=== PATIENT | male | born 1955 | race Caucasian/White ===

== ENCOUNTER 2017-02-26 07:14 | Day surgery (SDC) | payer MEDICARE, BC ==
[~2017-02-26 07:14] MED LIST: Metoclopramide 10 MG/2 ML SDV IV PRN; Sodium Chloride 0.9% 1,000 ML IV SCH; Sodium Chloride 0.9% 10 ML Syringe FLUSH PRN
[2017-02-26] MEDS ORDERED: Propofol 200 MG/20 ML SDV ONE (09:30)
[2017-02-26 11:15] VITALS: BP 141/63
--- NOTE | 2017-02-26 19:10 | OR ---
DATE OF OPERATION: 02/26/2017 PREOPERATIVE DIAGNOSIS: Surveillance colonoscopy, prior history of polyps. POSTOPERATIVE DIAGNOSES: 1. Diverticulosis of the sigmoid. 2. 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 3. Grade 1 internal hemorrhoids. OPERATION: Surveillance colonoscopy, prior history of polyps. COMPLICATIONS: None. DRAINS: None. SPECIMENS: None. ESTIMATED BLOOD LOSS: Zero. ANESTHESIA: General propofol anesthesia. INDICATIONS: Mr. Cervantes is a 61-year-old gentleman who has been having colonoscopies every 5 years for a polyp identified in the past. He has no family history of colon cancer. The above-mentioned procedure was explained. The risks, benefits, and complications were explained. The patient understood and agreed, and was brought to the operating room. DESCRIPTION OF PROCEDURE: The patient was brought to the operating room and placed in a left lateral decubitus position. Satisfactory general propofol anesthesia was administered. We began by performing a rectal examination, which was within normal limits. I then placed the endoscope by finger introduction into the rectum and subsequently advanced this to the level of the cecum. The cecum was identified by the appendiceal orifice, the cecal strap, and the ileocecal valve. Next, a careful evaluation of the colon was made on withdrawal. There was an interesting finding of significantly enlarged veins identified on the mucosal surface just proximal and distal, and including the splenic flexure. No other veins were identified anywhere else in the colon of this nature. These were very large and tortuous veins. The remainder of the left colon appeared satisfactory. There was diverticulosis of the sigmoid colon. Retroflexion did reveal grade 1 internal hemorrhoids. Otherwise, no other abnormalities. There were no polyps, no telangiectasias or neoplastic growths. The colon was then decompressed. The endoscope was withdrawn. The patient tolerated the procedure well. There were no complications. Instrument count was correct. SHELBIE/CHELSI /[id number]
== END 2017-02-26 11:20 | disposition home or self-care (01) ==
LOC: LB.SDS 07:14
PROVIDERS: ATTEND Surgery
DX: Z12.11 Encounter for screening for malignant neoplasm of colon (principal); K57.30 Diverticulosis of large intestine without perforation or abscess without bleeding; K64.8 Other hemorrhoids
CPT/HCPCS: 82962; G0105; J2704; J7040

== ENCOUNTER 2019-05-10 09:38 | Emergency (ER) | payer MEDICARE, BC ==
[2019-05-10 10:15] VITALS: BP 148/68
[2019-05-10] MEDS ORDERED: Ondansetron 4 MG Tab.DIS ONE (10:20)
--- NOTE | 2019-05-10 10:53 | EDM.PDOC ---
ED HPI GENERAL MEDICAL PROBLEM - General Chief Complaint: General Stated Complaint: upset stomach, unable to eat Time Seen by Provider: 05/10/19 10:00 Source of Information: Reports: Patient History Limitations: Reports: No Limitations - History of Present Illness INITIAL COMMENTS - FREE TEXT/NARRATIVE: According to patient he claims he has been having loose stools on and off for past 1 wk. Stools are semiformed and frequent. Mild abdominal distension and cramping with stools. No blood or mucus in the stools. he has not had stools for past 2 days. He claims he has felt nausea on and off, and has not been eating well. No fever or chills. He claims he vomited small amount of clear fluid last evening, but had oat meal today morning and tolerated it well.. Drinking lot of Gatorade. He has been driving his bike and has driven about 1500 miles around the country and back yesterday. Onset Date: 05/03/19 Duration: Week(s): (1 wk ago) Location: Reports: Abdomen Quality: Reports: Ache Severity: Mild Associated Symptoms: Reports: Nausea/Vomiting. Denies: Confusion, Chest Pain, Cough, Diaphoresis, Fever/Chills, Headaches, Rash, Seizure, Shortness of Breath , Syncope, Weakness abd pain and back pain Pain Score (Numeric/FACES): 6 - Related Data Allergies Allergy/AdvReac Type Severity Reaction Status Date / Time No Known Allergies Allergy Verified 05/10/19 10:15 Home Meds: Home Meds Aspirin [Adult Low Dose Aspirin EC] 81 mg PO DAILY 02/21/16 [History] Insulin Aspart [Novolog] 0 unit SQ TID 02/21/16 [History] Insulin Detemir [Levemir] 25 unit SUBCUT DAILY 02/21/16 [History] Lisinopril 10 mg PO DAILY 02/21/16 [History] Metoprolol Succinate [Toprol XL] 25 mg PO DAILY 02/21/16 [History] Past Medical History Cardiovascular History: Reports: Afib, Hypertension Endocrine/Metabolic History: Reports: Diabetes, Type I Immunologic History: Reports: Other (See Below) Other Immunologic History: patient has had spleen removal Social & Family History - Caffeine Use Caffeine Use: Reports: Coffee ED ROS GENERAL - Review of Systems Review Of Systems: See Below Constitutional: Denies: Fever, Chills HEENT: Denies: Ear Pain, Rhinitis, Throat Pain Respiratory: Denies: Shortness of Breath, Cough, Sputum Cardiovascular: Denies: Chest Pain, Lightheadedness, Syncope GI/Abdominal: Reports: Abdominal Pain, Diarrhea, Nausea, Vomiting. Denies: Constipation : Denies: Dysuria, Frequency Musculoskeletal: Denies: Joint Pain, Joint Swelling Skin: Denies: Bruising, Pruritis, Rash ED EXAM, GENERAL - Physical Exam Exam: See Below Exam Limited By: No Limitations General Appearance: Alert, WD/WN, No Apparent Distress, Other (Hydration appropriate) Eye Exam: Bilateral Eye: EOMI, PERRL Ears: Normal External Exam, Normal Canal, Hearing Grossly Normal, Normal TMs Ear Exam: Bilateral Ear: Auricle Normal, Canal Normal, TM normal Nose: Normal Inspection, Normal Mucosa, No Blood Throat/Mouth: Normal Inspection, Normal Lips, Normal Teeth, Normal Gums, Normal Oropharynx, Normal Voice, No Airway Compromise Head: Atraumatic, Normocephalic Neck: Normal Inspection, Supple, Non-Tender, Full Range of Motion Respiratory/Chest: No Respiratory Distress, Lungs Clear, Normal Breath Sounds, No Accessory Muscle Use, Chest Non-Tender Cardiovascular: Normal Peripheral Pulses, Regular Rate, Rhythm, No Edema, No Gallop, No JVD, No Murmur, No Rub GI/Abdominal: Normal Bowel Sounds, Soft, Non-Tender, No Organomegaly, No Distention, No Abnormal Bruit, No Mass Course - Vital Signs Text/Narrative:: Pt has had 1 wk history of loose stools, has not had any more stools in past 48 hrs. Also has mild nausea. But he has been driving 1500milks and reached home [place]. HE probably is tired form the journey. His CBC show white count of 16K, but his neutrophils are normal. This might be reactive elevation of white count form the stress. His BMP is normal.His LFT is normal. Pt reassured that he has viral gastroenteritis which is clearing up and is not dehydrated. Advised rest and good hydration. Powerade and Gatorade for electrolyte replenishment. Apples and bananas. Avoid meat and dairy products until he fells better. He did receive zofran ODT every 8 hrs as needed for nausea. followup in clinic if symptoms worsen. Last Recorded V/S: Last Vital Signs Temp 98.9 F 05/10/19 10:05 Pulse 86 05/10/19 10:05 Resp 16 05/10/19 10:05 BP 148/68 H 05/10/19 10:05 Pulse Ox 96 05/10/19 10:05 - Orders/Labs/Meds Orders: Active Orders 24 hr Category Date Time Status CBC WITH AUTO DIFF [HEME] Stat Lab 05/10/19 10:17 Ordered COMPREHENSIVE METABOLIC PN,CMP [CHEM] Stat Lab 05/10/19 10:17 Ordered Departure - Departure Time of Disposition: 11:00 Disposition: Home, Self-Care 01 Condition: Fair Clinical Impression: Viral gastroenteritis - Discharge Information *PRESCRIPTION DRUG MONITORING PROGRAM REVIEWED*: Not Applicable *COPY OF PRESCRIPTION DRUG MONITORING REPORT IN PATIENT MIKAEL: Not Applicable Referrals: PCP,None [Primary Care Provider] - - Problem List & Annotations (1) Viral gastroenteritis SNOMED Code(s): 980310963 Code(s): A08.4 - VIRAL INTESTINAL INFECTION, UNSPECIFIED Status: Acute Current Visit: Yes - Problem List Review Problem List Initiated/Reviewed/Updated: Yes - My Orders Last 24 Hours: My Active Orders 05/10/19 10:17 CBC WITH AUTO DIFF [HEME] Stat COMPREHENSIVE METABOLIC PN,CMP [CHEM] Stat - Assessment/Plan Last 24 Hours: My Active Orders 05/10/19 10:17 CBC WITH AUTO DIFF [HEME] Stat COMPREHENSIVE METABOLIC PN,CMP [CHEM] Stat Assessment:: Viral Gastroenteritis Plan: Pt has had 1 wk history of loose stools, has not had any more stools in past 48 hrs. Also has mild nausea. But he has been driving 1500milks and reached home Saturday. HE probably is tired form the journey. His CBC show white count of 16K, but his neutrophils are normal. This might be reactive elevation of white count form the stress. His BMP is normal.His LFT is normal. Pt reassured that he has viral gastroenteritis which is clearing up and is not dehydrated. Advised rest and good hydration. Powerade and Gatorade for electrolyte replenishment. Apples and bananas. Avoid meat and dairy products until he fells better. He did receive zofran ODT every 8 hrs as needed for nausea. followup in clinic if symptoms worsen.
== END 2019-05-10 11:05 | disposition home or self-care (01) ==
LOC: LB.ED 09:38
DX: A08.4 Viral intestinal infection, unspecified (principal); I48.91 Unspecified atrial fibrillation; I10 Essential (primary) hypertension; E10.9 Type 1 diabetes mellitus without complications; Z79.82 Long term (current) use of aspirin; Z79.899 Other long term (current) drug therapy; Z79.4 Long term (current) use of insulin
CPT/HCPCS: 36415; 80053; 85025; 99284; A9270

== ENCOUNTER 2019-05-13 09:28 | Inpatient (IN) | payer MEDICARE, BC ==
--- NOTE | 2019-05-13 12:19 | CT ---
DATE OF SERVICE: 05/13/2019 CLINICAL DATA: Abdominal pain, nausea with vomiting Unenhanced abdomen and pelvic CT: Multislice acquisition through the abdomen and pelvis without IV or oral contrast was performed. There are linear densities in both lung bases consistent with linear atelectasis or fibrosis. The lung bases are otherwise clear. The unenhanced liver appears normal. No focal hepatic lesions. The gallbladder is not adequately seen. The patient status post splenectomy. There is peripancreatic fat stranding adjacent to the head and uncinate process of the pancreas. Pancreatitis should be considered. No evidence of abscess or phlegmon. No evidence of pancreatic mass. No pancreatic duct dilatation. The right and left adrenals appear normal. The right and left kidneys appear normal. No nephrocalcinosis or nephrolithiasis. No hydronephrosis or hydroureter. The bladder is partially fluid-filled. It appears normal. The prostate is enlarged. No evidence of appendicitis. No free air. No free fluid. No dilated loops of bowel. No adenopathy. No aortic aneurysm. Impressions: Peripancreatic fat stranding adjacent to the head and uncinate process of pancreas consistent with pancreatitis. No evidence of pancreatic abscess or phlegmon. MTDD
[2019-05-13] MEDS ORDERED: Sodium Chloride 0.9% 1,000 ML IV SCH ×3 (12:45→16:30)
[2019-05-13] MEDS ORDERED: Sodium Chloride 0.9% 250 ML IV SCH (13:00)
[2019-05-13] MEDS ORDERED: HYDROmorphone 2 MG/ML SDV ONE ×3 (14:06→21:57)
[2019-05-13] MEDS: HYDROmorphone 2 MG/ML Syringe IVPUSH PRN ×3 (14:10→21:55)
[2019-05-13] MEDS ORDERED: Dextrose 5%-0.9% NaCl 1,000 ML IV SCH (17:30)
[2019-05-13] MEDS: Dextrose 5%-0.45% NaCl 1,000 ML IV SCH (18:45)
[2019-05-13] MEDS ORDERED: Insulin Aspart 100 Units/ML 3 ML Pen SUBCUT ONE (21:16)
[2019-05-14] MEDS: Dextrose 5%-0.45% NaCl 1,000 ML IV SCH (01:26)
[2019-05-14] MEDS: HYDROmorphone 2 MG/ML Syringe IVPUSH PRN ×6 (02:48→22:04)
[2019-05-14] MEDS: Insulin Aspart 100 Units/ML 3 ML Pen SUBCUT ONE ×2 (05:49→09:08)
[2019-05-14] MEDS ORDERED: HYDROmorphone 2 MG/ML SDV ONE ×5 (07:21→21:57)
[2019-05-14] MEDS ORDERED: Polyethylene Glycol 3350 Powder 17 GM Packet PO ONE (08:39)
[2019-05-14] MEDS ORDERED: Lisinopril 10 MG Tab PO SCH (08:45)
--- NOTE | 2019-05-14 08:46 | PCM.PN ---
- General Info Date of Service: 05/14/19 Admission Dx/Problem (Free Text): pancreatitis Subjective Update: Pt is feeling better. He is taking clear liquids and no N/V anymore. He is voiding well. No BM and not passing gas. Functional Status: Reports: Pain Controlled, Tolerating Diet, Urinating - Review of Systems General: Reports: Weakness. Denies: Fever HEENT: Denies: Headaches, Sinus Congestion, Visual Changes Pulmonary: Denies: Shortness of Breath, Cough Cardiovascular: Denies: Chest Pain, Palpitations Gastrointestinal: Reports: Other (abdominal pain is improved, comes and goes). Denies: Flatus, Nausea, Vomiting Genitourinary: Reports: No Symptoms Musculoskeletal: Reports: No Symptoms Skin: Reports: No Symptoms Neurological: Reports: No Symptoms Psychiatric: Reports: No Symptoms - Patient Data Vitals - Most Recent: Last Vital Signs Temp 99.1 F 05/14/19 03:31 Pulse 86 05/14/19 03:31 Resp 20 05/14/19 03:31 BP 118/75 05/14/19 03:31 Pulse Ox 92 L 05/14/19 03:31 Weight - Most Recent: 203 lb 3.2 oz I&O - Last 24 Hours: Intake & Output 05/13/19 05/14/19 05/14/19 22:59 06:59 14:59 Intake Total 1999 1709 Output Total 1425 Balance 1999 284 Lab Results Last 24 Hours: Laboratory Results - last 24 hr 05/13/19 05/13/19 05/13/19 Range/Units 09:44 09:44 13:22 WBC 14.5 H (4.0-11.0) K/uL RBC 4.14 L (4.50-6.50) M/uL Hgb 12.5 L (13.0-18.0) g/dL Hct 37.4 L (40.0-54.0) % MCV 90 (76-96) fL MCH 30.2 (27.0-32.0) pg MCHC 33.4 (31.0-35.0) g/dL RDW 14.4 (11.0-16.0) % Plt Count 330 (150-400) K/uL MPV 11.7 H (6.0-10.0) fL Neut % (Auto) 71.5 H (45.0-70.0) % Lymph % (Auto) 14.4 L (20.0-40.0) % Stokes % (Auto) 13.2 H (3.0-10.0) % Eos % (Auto) 0.7 L (1.0-5.0) % Baso % (Auto) 0.2 (0.0-0.5) % Neut # (Auto) 10.38 H (2.00-7.50) K/uL Lymph # (Auto) 2.09 (1.50-4.00) K/uL Stokes # (Auto) 1.91 H (0.20-0.80) K/uL Eos # (Auto) 0.10 (0.04-0.40) K/uL Baso # (Auto) 0.03 (0.02-0.10) K/uL Sodium 137 (136-145) mmol/L Potassium 4.2 (3.5-5.1) mmol/L Chloride 99 (98-107) mmol/L Carbon Dioxide 27.1 (21.0-32.0) mmol/L Anion Gap 15.1 H (5.0-15.0) mmol/L BUN 20 D (8-26) mg/dL Creatinine 1.03 (0.70-1.30) mg/dL Est Cr Clr Drug Dosing TNP Estimated GFR (MDRD) > 60 (>60) MLS/MIN BUN/Creatinine Ratio 19.4 (6-25) Glucose 262 H (74-100) mg/dL POC Glucose (74-110) mg/dL Calcium 8.6 (8.5-10.1) mg/dL Magnesium (1.8-2.4) mg/dL Total Bilirubin 0.7 D (0.0-1.0) mg/dL Direct Bilirubin 0.3 (0.0-0.3) mg/dL Indirect Bilirubin 0.4 (<= 0.7) mg/dL AST 29 (15-37) U/L ALT 37 (12-78) U/L Alkaline Phosphatase 74 (46-116) U/L Total Protein 7.9 (6.4-8.2) g/dL Albumin 3.1 L (3.4-5.0) g/dL Globulin 4.8 H (2.2-4.2) g/dL Albumin/Globulin Ratio 0.7 L (0.8-2.0) Amylase (25-115) U/L Lipase (73-393) U/L 05/13/19 05/13/19 05/13/19 Range/Units 13:22 16:37 20:09 WBC (4.0-11.0) K/uL RBC (4.50-6.50) M/uL Hgb (13.0-18.0) g/dL Hct (40.0-54.0) % MCV (76-96) fL MCH (27.0-32.0) pg MCHC (31.0-35.0) g/dL RDW (11.0-16.0) % Plt Count (150-400) K/uL MPV (6.0-10.0) fL Neut % (Auto) (45.0-70.0) % Lymph % (Auto) (20.0-40.0) % Stokes % (Auto) (3.0-10.0) % Eos % (Auto) (1.0-5.0) % Baso % (Auto) (0.0-0.5) % Neut # (Auto) (2.00-7.50) K/uL Lymph # (Auto) (1.50-4.00) K/uL Stokes # (Auto) (0.20-0.80) K/uL Eos # (Auto) (0.04-0.40) K/uL Baso # (Auto) (0.02-0.10) K/uL Sodium (136-145) mmol/L Potassium (3.5-5.1) mmol/L Chloride (98-107) mmol/L Carbon Dioxide (21.0-32.0) mmol/L Anion Gap (5.0-15.0) mmol/L BUN (8-26) mg/dL Creatinine (0.70-1.30) mg/dL Est Cr Clr Drug Dosing Estimated GFR (MDRD) (>60) MLS/MIN BUN/Creatinine Ratio (6-25) Glucose (74-100) mg/dL POC Glucose 220 H 349 H (74-110) mg/dL Calcium (8.5-10.1) mg/dL Magnesium (1.8-2.4) mg/dL Total Bilirubin (0.0-1.0) mg/dL Direct Bilirubin (0.0-0.3) mg/dL Indirect Bilirubin (<= 0.7) mg/dL AST (15-37) U/L ALT (12-78) U/L Alkaline Phosphatase (46-116) U/L Total Protein (6.4-8.2) g/dL Albumin (3.4-5.0) g/dL Globulin (2.2-4.2) g/dL Albumin/Globulin Ratio (0.8-2.0) Amylase 13 L (25-115) U/L Lipase 31 L (73-393) U/L 05/13/19 05/14/19 05/14/19 Range/Units 22:56 05:38 07:17 WBC 12.4 H (4.0-11.0) K/uL RBC 3.86 L (4.50-6.50) M/uL Hgb 11.6 L (13.0-18.0) g/dL Hct 35.3 L (40.0-54.0) % MCV 92 (76-96) fL MCH 30.1 (27.0-32.0) pg MCHC 32.9 (31.0-35.0) g/dL RDW 14.6 (11.0-16.0) % Plt Count 319 (150-400) K/uL MPV 11.7 H (6.0-10.0) fL Neut % (Auto) 68.5 (45.0-70.0) % Lymph % (Auto) 15.4 L (20.0-40.0) % Stokes % (Auto) 14.4 H (3.0-10.0) % Eos % (Auto) 1.4 (1.0-5.0) % Baso % (Auto) 0.3 (0.0-0.5) % Neut # (Auto) 8.52 H (2.00-7.50) K/uL Lymph # (Auto) 1.91 (1.50-4.00) K/uL Stokes # (Auto) 1.79 H (0.20-0.80) K/uL Eos # (Auto) 0.18 (0.04-0.40) K/uL Baso # (Auto) 0.04 (0.02-0.10) K/uL Sodium (136-145) mmol/L Potassium (3.5-5.1) mmol/L Chloride (98-107) mmol/L Carbon Dioxide (21.0-32.0) mmol/L Anion Gap (5.0-15.0) mmol/L BUN (8-26) mg/dL Creatinine (0.70-1.30) mg/dL Est Cr Clr Drug Dosing Estimated GFR (MDRD) (>60) MLS/MIN BUN/Creatinine Ratio (6-25) Glucose (74-100) mg/dL POC Glucose 370 H 413 H* (74-110) mg/dL Calcium (8.5-10.1) mg/dL Magnesium (1.8-2.4) mg/dL Total Bilirubin (0.0-1.0) mg/dL Direct Bilirubin (0.0-0.3) mg/dL Indirect Bilirubin (<= 0.7) mg/dL AST (15-37) U/L ALT (12-78) U/L Alkaline Phosphatase (46-116) U/L Total Protein (6.4-8.2) g/dL Albumin (3.4-5.0) g/dL Globulin (2.2-4.2) g/dL Albumin/Globulin Ratio (0.8-2.0) Amylase (25-115) U/L Lipase (73-393) U/L 05/14/19 05/14/19 Range/Units 07:17 07:17 WBC (4.0-11.0) K/uL RBC (4.50-6.50) M/uL Hgb (13.0-18.0) g/dL Hct (40.0-54.0) % MCV (76-96) fL MCH (27.0-32.0) pg MCHC (31.0-35.0) g/dL RDW (11.0-16.0) % Plt Count (150-400) K/uL MPV (6.0-10.0) fL Neut % (Auto) (45.0-70.0) % Lymph % (Auto) (20.0-40.0) % Stokes % (Auto) (3.0-10.0) % Eos % (Auto) (1.0-5.0) % Baso % (Auto) (0.0-0.5) % Neut # (Auto) (2.00-7.50) K/uL Lymph # (Auto) (1.50-4.00) K/uL Stokes # (Auto) (0.20-0.80) K/uL Eos # (Auto) (0.04-0.40) K/uL Baso # (Auto) (0.02-0.10) K/uL Sodium 137 (136-145) mmol/L Potassium 4.1 (3.5-5.1) mmol/L Chloride 102 (98-107) mmol/L Carbon Dioxide 27.0 (21.0-32.0) mmol/L Anion Gap 12.1 (5.0-15.0) mmol/L BUN 11 D (8-26) mg/dL Creatinine 0.87 (0.70-1.30) mg/dL Est Cr Clr Drug Dosing 91.36 Estimated GFR (MDRD) > 60 (>60) MLS/MIN BUN/Creatinine Ratio 12.6 (6-25) Glucose 345 H D (74-100) mg/dL POC Glucose (74-110) mg/dL Calcium 7.9 L (8.5-10.1) mg/dL Magnesium 1.8 (1.8-2.4) mg/dL Total Bilirubin (0.0-1.0) mg/dL Direct Bilirubin (0.0-0.3) mg/dL Indirect Bilirubin (<= 0.7) mg/dL AST (15-37) U/L ALT (12-78) U/L Alkaline Phosphatase (46-116) U/L Total Protein (6.4-8.2) g/dL Albumin (3.4-5.0) g/dL Globulin (2.2-4.2) g/dL Albumin/Globulin Ratio (0.8-2.0) Amylase (25-115) U/L Lipase (73-393) U/L Med Orders - Current: Current Medications Aspirin (Halfprin) 81 mg PO DAILY ED Hydromorphone HCl (Dilaudid) 0.5 mg IVPUSH Q4H PRN PRN Reason: Pain Last Admin: 05/14/19 07:19 Dose: 0.5 mg Promethazine HCl 12.5 mg/ (Sodium Chloride) 50.5 mls @ 200 mls/hr IV Q6H PRN PRN Reason: Nausea/Vomiting Insulin Detemir (Levemir) 32 unit SUBCUT BEDTIME [facility] Lisinopril (Prinivil) 5 mg PO DAILY [facility] Metoprolol Succinate (Toprol Xl) 25 mg PO DAILY [facility] Polyethylene Glycol (Miralax) 17 gm PO ONETIME ONE Stop: 05/14/19 08:40 Discontinued Medications Hydromorphone HCl (Dilaudid) Confirm Administered Dose 2 mg .ROUTE .STK-MED ONE Stop: 05/13/19 14:07 Last Admin: 05/13/19 15:11 Dose: Not Given Hydromorphone HCl (Dilaudid) Confirm Administered Dose 2 mg .ROUTE .STK-MED ONE Stop: 05/13/19 17:29 Last Admin: 05/13/19 17:34 Dose: Not Given Hydromorphone HCl (Dilaudid) Confirm Administered Dose 2 mg .ROUTE .[facility] [email or web address]]-MED ONE Stop: 05/13/19 21:58 Last Admin: 05/13/19 22:28 Dose: Not Given Hydromorphone HCl (Dilaudid) Confirm Administered Dose 2 mg .ROUTE .STK-MED ONE Stop: 05/14/19 07:22 Sodium Chloride (Normal Saline) 1,000 mls @ 999 mls/hr IV ASDIRECTED ED Stop: 05/13/19 13:46 Last Admin: 05/13/19 13:26 Dose: 999 mls/hr Sodium Chloride (Normal Saline) 250 mls @ 0 mls/hr IV ASDIRECTED ED Stop: 05/13/19 13:01 Sodium Chloride (Normal Saline) 1,000 mls @ 125 mls/hr IV ASDIRECTED ED Sodium Chloride (Normal Saline) 1,000 mls @ 250 mls/hr IV ASDIRECTED ED Stop: 05/13/19 16:59 Last Admin: 05/13/19 14:30 Dose: 250 mls/hr Dextrose/Sodium Chloride (Dextrose 5%-Normal Saline) 1,000 mls @ 125 mls/hr IV ASDIRECTED [facility] Dextrose/Sodium Chloride (Dextrose 5%-1/2 Ns) 1,000 mls @ 75 mls/hr IV ASDIRECTED [facility] Last Admin: 05/14/19 01:26 Dose: 75 mls/hr Insulin Aspart (Novolog) 0 unit SUBCUT ONETIME ONE; Protocol Stop: 05/13/19 21:17 Last Admin: 05/13/19 21:41 Dose: 4 units Insulin Aspart (Novolog) 0 unit SUBCUT ONETIME ONE; Protocol Stop: 05/14/19 08:01 Last Admin: 05/14/19 05:49 Dose: 5 units - Exam General: Alert, Oriented, Cooperative, No Acute Distress HEENT: Pupils Equal, Mucous Membr. Moist/[place] Neck: Supple, Trachea Midline, No JVD Lungs: Clear to Auscultation, Normal Respiratory Effort Cardiovascular: Regular Rate, Regular Rhythm GI/Abdominal Exam: Soft, Non-Tender, Other (bowel sounds improved, somewhat sluggish to LLQ.) Extremities: Normal Inspection, Normal Range of Motion, Non-Tender, No Pedal Edema Peripheral Pulses: 2+: Dorsalis Pedis (L), Dorsalis Pedis (R) Skin: Warm, Dry Neurological: No New Focal Deficit Psy/Mental Status: Alert, Normal Affect, Normal Mood - Problem List & Annotations (1) Pancreatitis, acute SNOMED Code(s): 690439341 Code(s): K85.90 - ACUTE PANCREATITIS WITHOUT NECROSIS OR INFECTION, UNSP Status: Acute Current Visit: Yes (2) Diabetes mellitus SNOMED Code(s): 59569289 Code(s): E11.9 - TYPE 2 DIABETES MELLITUS WITHOUT COMPLICATIONS Status: Acute Current Visit: Yes - Problem List Review Problem List Initiated/Reviewed/Updated: Yes - My Orders Last 24 Hours: My Active Orders 05/13/19 12:29 Patient Status [ADT] Routine Bedrest Bathroom Privileges [RC] ASDIRECTED Height and Weight [RC] DAILY Vital Signs [RC] 00,04,08,12,16,20 05/13/19 12:34 Promethazine [Phenergan] 12.5 mg Sodium Chloride 0.9% [Normal Saline] 50 ml IV Q6H 05/13/19 14:01 CULTURE MRSA SURVEY [RM] Routine 05/13/19 14:03 HYDROmorphone [Dilaudid] 0.5 mg IVPUSH Q4H PRN 05/14/19 08:39 Polyethylene Glycol 3350 [MiraLAX] 17 gm PO ONETIME ONE 05/14/19 08:45 Lisinopril [Prinivil] 5 mg PO DAILY Metoprolol Succinate [Toprol XL] 25 mg PO DAILY 05/14/19 20:00 Insulin Detemir [Levemir] 32 unit SUBCUT BEDTIME 05/14/19 Lunch Consistent Carbohydrate Diet [DIET] 05/15/19 08:00 Aspirin [Halfprin] 81 mg PO DAILY - Assessment Assessment:: Pancreatitis, diabetes controlled with insulin and diet, hypertension controlled with medication. Kindly refer to admission with note from clinic record for 05-13-2019 Pt presents with abdominal pain for about 10-14 days after 1500 mile ride on motorcycle. Pt was seen in the ER with gastroenteritis and recommend to increase fluids and Zofran for nausea. Elevated WBC may be related to the stress of the activity. Abdomen upright completed 05-11-19 at clinic appointment. Consult with Dr Longo and increase in gas noted and no bowel noted in distal colon. Recommended to continue with increase of gatorade/ fluids in small amounts and Zofran for nausea. Pt returned to clinic yesterday with continued middle abdominal pain, nausea and no BM. CT of abdomen with pancreatitis noted. Pt admit and IV fluid bolus given and dilaudid IV for pain control. Sliding scale insulin for blood sugars and clear liquid diet at supper if nausea improved. Pt taking fluids and urinating well. CBC repeat this am and improved WBC. Lipase and amylase are normal. Bowel sounds noted and some sluggish to LLQ, pt isn't passing flatus yet. Will continue with clear liquid diet this am and advance to soft diet at lunch if no return of nausea. Will stop IV fluids and saline lock IV. Will start Miralax for constipation and start oral medications for hypertension. If pt taking soft foods well and no return of N/V and pain, may discharge in am. - Plan Plan:: Will continue with clear liquid diet this am and advance to soft diet at lunch if no return of nausea. Continue with sliding scale ac and hs. Continue with Dilaudid for relief of pain. Will stop IV fluids and saline lock IV. Will start Miralax for constipation and start oral medications for hypertension. If pt taking soft foods well and no return of N/V and pain, may discharge in am.
[2019-05-14] MEDS ORDERED: Lisinopril 5 MG Tab ONE (10:15)
[2019-05-14] MEDS ORDERED: Aspirin 81 MG Tab.Chew ONE (10:16)
[2019-05-14] MEDS: Lisinopril 5 MG Tab PO SCH (10:21)
[2019-05-14] MEDS: Aspirin 81 MG Tab.EC PO SCH (10:22)
[2019-05-14] MEDS: Metoprolol Succinate 25 MG Tab.ER PO SCH (10:22)
[2019-05-14] MEDS ORDERED: Sodium Chloride 0.9% 500 ML IV ONE (10:40)
[2019-05-14] MEDS: Insulin Aspart 100 Units/ML 3 ML Pen SUBCUT SCH ×2 (17:00→21:20)
[2019-05-14] MEDS ORDERED: Insulin Detemir 100 Units/ML 3 ML Pen SUBCUT SCH (20:00)
[2019-05-14] MEDS: Promethazine 12.5 MG in Sodium Chloride 0.9% 50 ML IV PRN (22:03)
[2019-05-15] MEDS: HYDROmorphone 2 MG/ML Syringe IVPUSH PRN ×3 (02:10→10:00)
[2019-05-15] MEDS: Promethazine 12.5 MG in Sodium Chloride 0.9% 50 ML IV PRN (04:32)
[2019-05-15] MEDS ORDERED: HYDROmorphone 2 MG/ML SDV ONE ×4 (06:42→11:32)
[2019-05-15] MEDS: Lisinopril 5 MG Tab PO SCH (08:30)
[2019-05-15] MEDS: Aspirin 81 MG Tab.EC PO SCH (08:30)
[2019-05-15 08:31] VITALS: BP 157/81
[2019-05-15] MEDS: Metoprolol Succinate 25 MG Tab.ER PO SCH (08:31)
[2019-05-15] MEDS: Insulin Aspart 100 Units/ML 3 ML Pen SUBCUT SCH (08:32)
[2019-05-15] MEDS ORDERED: Sodium Chloride 0.9% 500 ML IV ONE (08:50)
--- NOTE | 2019-05-15 09:55 | PCM.DCSUM1 ---
Discharge Summary - Hospital Course HPI Initial Comments: 63 yr male with N/V and abdominal pain to middle abdomen and through to back for about 10-14 days. He had been taking sips of Gatorade and water at home with no improvement. CT of abdomen completed 05-13-19 with pancreatitis noted, Lipase and amylase negative. WBC improved over the last few days. IV fluid bolus of 2 liters given and IV rate at 125cc/hr over night. Advanced diet to clear liquid and pain returned 06/27. Pt has been receiving dilaudid IV for pain relief and Phenergan IV for nausea. Pt has been ambulatory in halls with no problems. He does have diabetes with Levemir sq hs daily and sliding scale during day. No BM for several days. Bowel sounds sluggish today, abdomen is soft and mild distention. Diagnosis: Stroke: No - Discharge Data Discharge Date: 05/15/19 Discharge Disposition: DC/Tfer to Acute Hospital 02 Condition: Good - Discharge Diagnosis/Problem(s) (1) Pancreatitis, acute SNOMED Code(s): 198874842 ICD Code: K85.90 - ACUTE PANCREATITIS WITHOUT NECROSIS OR INFECTION, UNSP Status: Acute (2) Diabetes mellitus SNOMED Code(s): 01839724 ICD Code: E11.9 - TYPE 2 DIABETES MELLITUS WITHOUT COMPLICATIONS Status: Acute - Discharge Plan *PRESCRIPTION DRUG MONITORING PROGRAM REVIEWED*: Not Applicable *COPY OF PRESCRIPTION DRUG MONITORING REPORT IN PATIENT MIKAEL: Not Applicable Home Medications: Home Meds Aspirin [Adult Low Dose Aspirin EC] 81 mg PO DAILY 02/21/16 [History] Insulin Aspart [Novolog] 0 unit SQ TID 02/21/16 [History] Insulin Detemir [Levemir] 32 unit SUBCUT BEDTIME 02/21/16 [History] Lisinopril 5 mg PO DAILY 02/21/16 [History] Metoprolol Succinate [Toprol XL] 25 mg PO DAILY 02/21/16 [History] - Discharge Summary/Plan Comment DC Time >30 min.: No (Transfer to [facility] for admission) Discharge Summary/Plan Comment: Unresolved abdomen pain with pancreatitis, normal lipase, amylase and liver enzymes. WBC is improving daily and Electrolytes and kidney function stable with good improvement daily. Consult with Dr Echeverria, recommend to transfer to [facility]. Dr Aguirre consulted and will accept pt to inpatient. Room 203 and fax info to [phone] and nurse to nurse [phone]. Will transfer pt per road ambulance to [facility]. 11:35 pt discharged via [facility] to [facility] [place] - General Info Date of Service: 05/15/19 Subjective Update: abdominal pain increase over night. 8/10 and increase in nausea. - Review of Systems General: Reports: Weakness HEENT: Reports: No Symptoms Pulmonary: Reports: No Symptoms Cardiovascular: Reports: No Symptoms Gastrointestinal: Reports: Abdominal Pain, Constipation, Flatus, Nausea. Denies : Diarrhea, Vomiting Genitourinary: Reports: No Symptoms Musculoskeletal: Reports: Back Pain Skin: Reports: No Symptoms Neurological: Reports: No Symptoms Psychiatric: Reports: No Symptoms - Patient Data Vitals - Most Recent: Last Vital Signs Temp 99.9 F 05/15/19 08:00 Pulse 92 05/15/19 08:31 Resp 18 05/15/19 08:00 BP 157/81 H 05/15/19 08:31 Pulse Ox 97 05/15/19 08:00 Weight - Most Recent: 203 lb 3.2 oz I&O - Last 24 hours: Intake & Output 05/14/19 05/15/19 05/15/19 22:59 06:59 14:59 Intake Total 900 460 Output Total 750 Balance 150 460 Lab Results - Last 24 hrs: Laboratory Results - last 24 hr 05/14/19 05/15/19 Range/Units 16:23 07:50 Sodium 137 (136-145) mmol/L Potassium 4.1 (3.5-5.1) mmol/L Chloride 100 (98-107) mmol/L Carbon Dioxide 26.8 (21.0-32.0) mmol/L Anion Gap 14.3 (5.0-15.0) mmol/L BUN 9 (8-26) mg/dL Creatinine 0.78 (0.70-1.30) mg/dL Est Cr Clr Drug Dosing 101.90 mL/min Estimated GFR (MDRD) > 60 (>60) MLS/MIN BUN/Creatinine Ratio 11.5 (6-25) Glucose 252 H (74-100) mg/dL POC Glucose 409 H* (74-110) mg/dL Calcium 8.2 L (8.5-10.1) mg/dL ANTHONY Results - Last 24 hrs: Microbiology 05/13/19 14:01 MRSA Surveillance Culture - Final Nose, Unspecified NO MRSA ISOLATED Med Orders - Current: Current Medications Aspirin (Halfprin) 81 mg PO DAILY [facility] Last Admin: 05/15/19 08:30 Dose: 81 mg Hydromorphone HCl (Dilaudid) 0.5 mg IVPUSH Q4H PRN PRN Reason: Pain Last Admin: 05/15/19 06:50 Dose: 0.5 mg Promethazine HCl 12.5 mg/ (Sodium Chloride) 50.5 mls @ 200 mls/hr IV Q6H PRN PRN Reason: Nausea/Vomiting Last Admin: 05/15/19 04:32 Dose: 200 mls/hr Insulin Aspart (Novolog) 0 unit SUBCUT QIDACANDBED [facility]; Protocol Last Admin: 05/15/19 08:32 Dose: 3 units Insulin Detemir (Levemir) 32 unit SUBCUT BEDTIME [facility] Last Admin: 05/14/19 21:19 Dose: 32 units Lisinopril (Prinivil) 5 mg PO DAILY [facility] Last Admin: 05/15/19 08:30 Dose: 5 mg Metoprolol Succinate (Toprol Xl) 25 mg PO DAILY [facility] Last Admin: 05/15/19 08:31 Dose: 25 mg Discontinued Medications Aspirin (Aspirin) Confirm Administered Dose 81 mg .ROUTE .STK-MED ONE Stop: 05/14/19 10:17 Last Admin: 05/14/19 10:23 Dose: Not Given Hydromorphone HCl (Dilaudid) Confirm Administered Dose 2 mg .ROUTE .STK-MED ONE Stop: 05/13/19 14:07 Last Admin: 05/13/19 15:11 Dose: Not Given Hydromorphone HCl (Dilaudid) Confirm Administered Dose 2 mg .ROUTE .STK-MED ONE Stop: 05/13/19 17:29 Last Admin: 05/13/19 17:34 Dose: Not Given Hydromorphone HCl (Dilaudid) Confirm Administered Dose 2 mg .ROUTE .STK-MED ONE Stop: 05/13/19 21:58 Last Admin: 05/13/19 22:28 Dose: Not Given Hydromorphone HCl (Dilaudid) Confirm Administered Dose 2 mg .ROUTE .STK-MED ONE Stop: 05/14/19 07:22 Last Admin: 05/14/19 09:14 Dose: Not Given Hydromorphone HCl (Dilaudid) Confirm Administered Dose 2 mg .ROUTE .[facility] ONE Stop: 05/14/19 10:15 Last Admin: 05/14/19 10:23 Dose: Not Given Hydromorphone HCl (Dilaudid) Confirm Administered Dose 2 mg .ROUTE .[facility] ONE Stop: 05/14/19 15:16 Last Admin: 05/14/19 17:10 Dose: Not Given Hydromorphone HCl (Dilaudid) Confirm Administered Dose 2 mg .ROUTE .[facility] ONE Stop: 05/14/19 18:14 Last Admin: 05/14/19 19:04 Dose: Not Given Hydromorphone HCl (Dilaudid) Confirm Administered Dose 2 mg .ROUTE .[facility] ONE Stop: 05/14/19 21:58 Last Admin: 05/14/19 23:51 Dose: Not Given Hydromorphone HCl (Dilaudid) Confirm Administered Dose 2 mg .ROUTE .[facility] ONE Stop: 05/15/19 06:43 Last Admin: 05/15/19 08:39 Dose: Not Given Hydromorphone HCl (Dilaudid) Confirm Administered Dose 2 mg .ROUTE .[facility] ONE Stop: 05/15/19 09:45 Sodium Chloride (Normal Saline) 1,000 mls @ 999 mls/hr IV ASDIRECTED [facility] Stop: 05/13/19 13:46 Last Admin: 05/13/19 13:26 Dose: 999 mls/hr Sodium Chloride (Normal Saline) 250 mls @ 0 mls/hr IV ASDIRECTED [facility] Stop: 05/13/19 13:01 Sodium Chloride (Normal Saline) 1,000 mls @ 125 mls/hr IV ASDIRECTED ED Sodium Chloride (Normal Saline) 1,000 mls @ 250 mls/hr IV ASDIRECTED [facility] Stop: 05/13/19 16:59 Last Admin: 05/13/19 14:30 Dose: 250 mls/hr Dextrose/Sodium Chloride (Dextrose 5%-Normal Saline) 1,000 mls @ 125 mls/hr IV ASDIRECTED ED Dextrose/Sodium Chloride (Dextrose 5%-1/2 Ns) 1,000 mls @ 75 mls/hr IV ASDIRECTED ED Last Admin: 05/14/19 01:26 Dose: 75 mls/hr Sodium Chloride (Normal Saline) 500 mls @ 999 mls/hr IV BOLUS ONE Stop: 05/14/19 11:10 Last Admin: 05/14/19 10:45 Dose: 999 mls/hr Sodium Chloride (Normal Saline) 500 mls @ 999 mls/hr IV .BOLUS ONE Stop: 05/15/19 09:20 Insulin Aspart (Novolog) 0 unit SUBCUT ONETIME ONE; Protocol Stop: 05/13/19 21:17 Last Admin: 05/13/19 21:41 Dose: 4 units Insulin Aspart (Novolog) 0 unit SUBCUT ONETIME ONE; Protocol Stop: 05/14/19 08:01 Last Admin: 05/14/19 09:08 Dose: 5 units Lisinopril (Prinivil) Confirm Administered Dose 5 mg .ROUTE .STK-MED ONE Stop: 05/14/19 10:16 Last Admin: 05/14/19 10:48 Dose: Not Given Polyethylene Glycol (Miralax) 17 gm PO ONETIME ONE Stop: 05/14/19 08:40 Last Admin: 05/14/19 09:00 Dose: 17 gm - Exam General: Reports: Alert, Oriented, Cooperative HEENT: Reports: Pupils Equal, Pupils Reactive, Mucous Membr. Moist/[place] Neck: Reports: Supple, Trachea Midline Lungs: Reports: Clear to Auscultation, Normal Respiratory Effort Cardiovascular: Reports: Regular Rate, Regular Rhythm GI/Abdominal Exam: Soft, Tender, Other (mild distension noted today). No: Guarding, Rebound Back Exam: Reports: Normal Inspection, Full Range of Motion Extremities: Normal Inspection, Normal Range of Motion, Non-Tender, No Pedal Edema, Normal Capillary Refill Skin: Reports: Warm, Dry Neurological: Reports: No New Focal Deficit Psy/Mental Status: Reports: Alert, Normal Affect, Normal Mood
[2019-05-15] MEDS ORDERED: HYDROmorphone 2 MG/ML Syringe IVPUSH ONE ×2 (10:59→11:30)
== END 2019-05-15 11:35 | DRG 440 ==
LOC: LB.CT 09:28 → UNDOADMIN 12:29 → LB.MS 12:29 → UNDOADMIN 12:30 → LB.MS 12:57
PROVIDERS: ADMIT Nurse Practitioner Family; ATTEND Nurse Practitioner Family
DX: K85.90 Acute pancreatitis without necrosis or infection, unspecified (principal); E11.9 Type 2 diabetes mellitus without complications; I10 Essential (primary) hypertension; Z79.4 Long term (current) use of insulin; Z79.82 Long term (current) use of aspirin
CPT/HCPCS: 36415; 74176; 80048; 80076; 82150; 82962; 83690; 83735; 85025; A0425; A0429; A9270-GY; J1170; J1815-GY; J2550; J7030; J7040; J7050

== ENCOUNTER 2019-05-26 13:35 | Inpatient (IN) | payer MEDICARE, BC ==
[2019-05-26] MEDS ORDERED: Insulin Aspart 100 Units/ML 3 ML Pen SUBCUT ONE (15:30)
[2019-05-26] MEDS ORDERED: Tuberculin, PPD 5 Units/0.1 ML 1 ML MDV IDERM ONE (16:00)
[2019-05-26] MEDS ORDERED: Clotrimazole 1% Crm 15 GM Tube TOP PRN (16:05)
--- NOTE | 2019-05-26 16:31 | PCM.HP ---
H&P History of Present Illness - General Date of Service: 05/26/19 Admit Problem/Dx: Admission Diagnosis/Problem Admission Diagnosis/Problem Weakness Source of Information: Patient History Limitations: Reports: No Limitations - History of Present Illness Initial Comments - Free Text/Narative: 63 year old pleasant male in for strengthening s/p small bowel resection at [facility]. Patient is alert and oriented to person, place, and time. Patient states he feels fatigued from transport from [place] to [place], although he states he otherwise feels well. Patient denies any symptoms or complaints during visit with provider. Patient does have some abdominal pain at site of abdominal incision which starts at umbilicus and stops over symphysis pubis. Patient denies any redness, swelling, or drainage to site. Giuliana are in place. Lower Abdomen Pain Score (Numeric/FACES): 3 - Related Data Allergies/Adverse Reactions: Allergies Allergy/AdvReac Type Severity Reaction Status Date / Time No Known Allergies Allergy Verified 05/10/19 10:15 Home Medications: Home Meds Insulin Detemir [Levemir] 32 unit SUBCUT BEDTIME 02/21/16 [History] Lisinopril 5 mg PO DAILY 02/21/16 [History] Amiodarone [Cordarone] 400 mg PO DAILY 05/26/19 [History] Ciprofloxacin [Ciprofloxacin HCl] 500 mg PO BID 05/26/19 [History] Clotrimazole [Clotrimazole 1%] 1 applic TOP DAILY PRN 05/26/19 [History] Insulin Aspart [NovoLOG] See Protocol SQ TIDMEALS 05/26/19 [History] Levothyroxine [Synthroid] 50 mcg PO DAILY 05/26/19 [History] Multivit with Iron,Minerals [Spectravite Senior] 1 tab PO DAILY 05/26/19 [ History] Warfarin [Coumadin] 5 - 7.5 mg PO DAILY 05/26/19 [History] metroNIDAZOLE [Flagyl] 500 mg PO TID 05/26/19 [History] Past Medical History HEENT History: Reports: None Cardiovascular History: Reports: Afib, Hypertension Gastrointestinal History: Reports: Pancreatitis Other Gastrointestinal History: small bowel resection Musculoskeletal History: Reports: Fracture Endocrine/Metabolic History: Reports: Diabetes, Type I Immunologic History: Reports: Other (See Below) Other Immunologic History: patient has had spleen removal at 1 years old - Infectious Disease History Infectious Disease History: Reports: Chicken Pox, Mumps - Past Surgical History Cardiovascular Surgical History: Reports: None GI Surgical History: Reports: None Other GI Surgeries/Procedures: small bowel resection Musculoskeletal Surgical History: Reports: Other (See Below) Other Musculoskeletal Surgeries/Procedures:: tooth pick surgically removed from knee as child Social & Family History - Family History Family Medical History: Noncontributory - Caffeine Use Caffeine Use: Reports: Coffee Caffeine Use Comment: 1-2 cups coffee daily H&P Review of Systems - Review of Systems: Review Of Systems: See Below General: Reports: No Symptoms HEENT: Reports: No Symptoms Pulmonary: Reports: No Symptoms Cardiovascular: Reports: No Symptoms Gastrointestinal: Reports: No Symptoms Genitourinary: Reports: No Symptoms Musculoskeletal: Reports: No Symptoms Skin: Reports: Other (Slight pain and tenderness over mid abdominal surgical incision site. ) Psychiatric: Reports: No Symptoms Neurological: Reports: No Symptoms Hematologic/Lymphatic: Reports: No Symptoms Immunologic: Reports: No Symptoms Exam - Exam Exam: See Below - Exam Quality Assessment: No: Skin Breakdown General: Alert, Oriented, Cooperative HEENT: PERRLA Neck: Supple, Trachea Midline Lungs: Clear to Auscultation, Normal Respiratory Effort Cardiovascular: Regular Rate, Regular Rhythm GI/Abdominal Exam: Normal Bowel Sounds, Soft, Non-Tender, No Distention Back Exam: Normal Inspection Extremities: Normal Inspection Skin: Warm, Dry. No: Intact (incision approximately 15 cm in length to mid abdomen with giuliana in place. No redness, tenderness, or swelling noted to incsion site. ) Neurological: Cranial Nerves Intact Neuro Extensive - Mental Status: Alert, Oriented x3, Normal Mood/Affect, Normal Cognition, Memory Intact Neuro Extensive - Motor, Sensory, Reflexes: CN II-XII Intact, Normal Gait Psychiatric: Alert, Normal Affect, Normal Mood - Patient Data Lab Results Last 24 hrs: Laboratory Results - last 24 hr 05/26/19 Range/Units 14:11 POC Glucose 330 H (74-110) mg/dL *Q Meaningful Use (ADM) - VTE *Q VTE Mechanical Contraindications *Q: At Risk for Falls - VTE Risk Assess *Q Each Risk Factor Represents 1 Point: History of prior major surgery less than 1 month Total Score 1 Point Risk Factors: 1 Each Risk Factor Represents 2 Points: Age 60 - 74 Years Total Score 2 Point Risk Factors: 2 Each Risk Factor Represents 3 Points: None Total Score 3 Point Risk Factors: 0 Each Risk Factor Represents 5 Points: None Total Score 5 Point Risk Factors: 0 Venous Thromboembolism Risk Factor Score *Q: 3 - Problem List (1) Weakness SNOMED Code(s): 50188945 ICD Code: R53.1 - WEAKNESS Status: Acute Priority: Medium Current Visit : Yes (2) Pain at surgical incision SNOMED Code(s): 822942957 ICD Code: L76.82 - OTH POSTPROCEDURAL COMPLICATIONS OF SKIN, SUBCU Status: Acute Current Visit: Yes Problem List Initiated/Reviewed/Updated: Yes Orders Last 24hrs: Active Orders 24 hr Category Date Time Status Patient Status [ADT] Routine ADT 05/26/19 16:01 Active Ambulate [RC] PER UNIT ROUTINE Care 05/26/19 16:03 Active Blood Glucose Check, Bedside [RC] QIDACANDBED Care 05/26/19 16:00 Active Diabetes Education [RC] Click to Edit Care 05/26/19 16:02 Active Notify Provider [RC] PRN Care 05/26/19 16:04 Active Oxygen Therapy [RC] PRN Care 05/26/19 16:01 Active Up ad Wilma [RC] ASDIRECTED Care 05/26/19 16:00 Active VTE/DVT Education [RC] Per Unit Routine Care 05/26/19 16:01 Active Vital Signs [RC] PER UNIT ROUTINE Care 05/26/19 16:01 Active OT Evaluation and Treatment [CONS] Routine Cons 05/26/19 16:00 Active PT Evaluation and Treatment [CONS] Routine Cons 05/26/19 16:00 Active Consistent Carbohydrate Diet [DIET] Diet 05/26/19 Dinner Ordered Amiodarone [Cordarone] Med 05/27/19 08:00 Active 400 mg PO DAILY Ciprofloxacin [Ciprofloxacin HCl] Med 05/26/19 20:00 Active 500 mg PO BID Clotrimazole [Clotrimazole 1%] Med 05/26/19 16:05 Active 0 gm TOP DAILY PRN Levothyroxine [Synthroid] Med 05/27/19 08:00 Active 50 mcg PO DAILY Lisinopril [Prinivil] Med 05/27/19 08:00 Active 5 mg PO DAILY Multivitamins w-Iron/Ca/FA/Min [Thera M Plus] Med 05/27/19 08:00 Active 1 tab PO DAILY Warfarin [Coumadin] Med 05/31/19 18:00 Active 1 mg PO YO@1800 Warfarin [Coumadin] Med 05/27/19 18:00 Active 2.5 mg PO MOTUWETHFRSA@1800 metroNIDAZOLE [Flagyl] Med 05/26/19 20:00 Active 500 mg PO TID Glucose Management Sub Q Reflex [OM.PC] Click To Edit Oth 05/26/19 16:00 Ordered Resuscitation Status Routine Resus Stat 05/26/19 16:00 Ordered Medication Orders Amiodarone HCl (Cordarone) 400 mg PO DAILY [facility] Ciprofloxacin (Ciprofloxacin Hcl) 500 mg PO BID [facility] Clotrimazole (Clotrimazole 1%) 0 gm TOP DAILY PRN PRN Reason: Rash Levothyroxine Sodium (Synthroid) 50 mcg PO DAILY [facility] Lisinopril (Prinivil) 5 mg PO DAILY [facility] Metronidazole (Flagyl) 500 mg PO TID [facility] Multivitamins/Minerals (Thera M Plus) 1 tab PO DAILY [facility] Warfarin Sodium (Coumadin) 2.5 mg PO MOTUWETHFRSA@1800 ED Warfarin Sodium (Coumadin) 1 mg PO YO@1800 [facility] Assessment/Plan Comment:: Weakness: Patient has mild generalized weakness from illness and undergoing surgical procedure. Patient will work with occupational and physical therapy for strengthening. Pain at surgical incision site: Mild pain to surgical incision site. Will treat pain as needed and monitor for signs and symptoms of infection. No signs or symptoms of infection present.
[2019-05-26] MEDS: Insulin Aspart 100 Units/ML 3 ML Pen SUBCUT SCH ×2 (17:19→23:17)
[2019-05-26] MEDS: Ciprofloxacin 500 MG Tab PO SCH (20:11)
[2019-05-26] MEDS: metroNIDAZOLE 500 MG Tab PO SCH (20:11)
[2019-05-26] MEDS: Insulin Detemir 100 Units/ML 3 ML Pen SUBCUT SCH (21:36)
[2019-05-27] MEDS ORDERED: Levothyroxine 50 MCG Tab PO SCH (08:00)
[2019-05-27] MEDS: Amiodarone 200 MG Tab PO SCH (08:13)
[2019-05-27] MEDS: metroNIDAZOLE 500 MG Tab PO SCH ×3 (08:13→19:52)
[2019-05-27] MEDS: Ciprofloxacin 500 MG Tab PO SCH ×2 (08:13→19:52)
[2019-05-27] MEDS: Multivitamins with Iron/Calcium/Folic Acid/Minerals Tab PO SCH (08:14)
[2019-05-27] MEDS: Lisinopril 5 MG Tab PO SCH (08:16)
[2019-05-27] MEDS: Insulin Aspart 100 Units/ML 3 ML Pen SUBCUT SCH ×4 (08:21→21:30)
[2019-05-27] MEDS: Warfarin 2.5 MG Tab PO SCH (17:22)
[2019-05-27] MEDS: Insulin Detemir 100 Units/ML 3 ML Pen SUBCUT SCH (20:59)
[2019-05-28] MEDS: Levothyroxine 50 MCG Tab PO SCH (07:38)
[2019-05-28] MEDS: Insulin Aspart 100 Units/ML 3 ML Pen SUBCUT SCH ×4 (07:38→21:11)
[2019-05-28] MEDS: Amiodarone 200 MG Tab PO SCH (08:52)
[2019-05-28] MEDS: metroNIDAZOLE 500 MG Tab PO SCH ×3 (08:52→21:13)
[2019-05-28] MEDS: Ciprofloxacin 500 MG Tab PO SCH ×2 (08:52→21:13)
[2019-05-28] MEDS: Lisinopril 5 MG Tab PO SCH (08:53)
[2019-05-28] MEDS: Multivitamins with Iron/Calcium/Folic Acid/Minerals Tab PO SCH (08:54)
[2019-05-28] MEDS ORDERED: Insulin Aspart 100 Units/ML 3 ML Pen SUBCUT ONE (17:16)
[2019-05-28] MEDS: Warfarin 2.5 MG Tab PO SCH (17:38)
[2019-05-28] MEDS: Insulin Detemir 100 Units/ML 3 ML Pen SUBCUT SCH (21:12)
[2019-05-29] MEDS: Levothyroxine 50 MCG Tab PO SCH (06:24)
[2019-05-29] MEDS: Multivitamins with Iron/Calcium/Folic Acid/Minerals Tab PO SCH (08:27)
[2019-05-29] MEDS: Amiodarone 200 MG Tab PO SCH (08:27)
[2019-05-29] MEDS: Lisinopril 5 MG Tab PO SCH (08:27)
[2019-05-29] MEDS: metroNIDAZOLE 500 MG Tab PO SCH (08:27)
[2019-05-29] MEDS: Ciprofloxacin 500 MG Tab PO SCH (08:27)
[2019-05-29 08:28] VITALS: BP 135/81
[2019-05-29] MEDS: Insulin Aspart 100 Units/ML 3 ML Pen SUBCUT SCH (08:28)
[2019-05-29 08:58] VITALS: PULSE 82
--- NOTE | 2019-06-10 15:45 | PCM.DCSUM1 ---
Discharge Summary - Hospital Course Free Text/Narrative:: Patient ready to discharge to home. Patient denies any symptoms or complaints during visit today. He would like to go home, and he states he can manage care of surgical incision at home and will follow up in clinic 06/01/19 for removal of giuliana. Patient has been cleared by physical and occupational therapy to safely return home. Diagnosis: Stroke: No - Discharge Data Discharge Date: 06/10/19 Discharge Disposition: Home, Self-Care 01 Condition: Good - Discharge Diagnosis/Problem(s) (1) Weakness SNOMED Code(s): 19080073 ICD Code: R53.1 - WEAKNESS Status: Acute Priority: Low (2) Pain at surgical incision SNOMED Code(s): 980552782 ICD Code: L76.82 - OTH POSTPROCEDURAL COMPLICATIONS OF SKIN, SUBCU Status: Acute Priority: Medium - Patient Summary/Data Consults: Consultations 05/26/19 16:00 OT Evaluation and Treatment [CONS] Routine Please Evaluate and Treat. OT Reason for Consult: Strengthening This query below is only for informational purposes and is not editable. PT Evaluation and Treatment [CONS] Routine Please Evaluate and Treat. PT Reason for Consult: Strengthening This query below is only for informational purposes and is not editable. - Patient Instructions Diet: Diabetic Diet Activity: Apply Ice, Cough & Deep Breathe Driving: May Drive Today Showering/Bathing: May Shower Wound/Incision Care: Keep Operative Site/Wound Site Clean and Dry Notify Provider of: Fever, Increased Pain, Swelling and Redness, Drainage, Nausea and/or Vomiting - Discharge Plan *PRESCRIPTION DRUG MONITORING PROGRAM REVIEWED*: Not Applicable *COPY OF PRESCRIPTION DRUG MONITORING REPORT IN PATIENT MIKAEL: Not Applicable Home Medications: Home Meds Insulin Detemir [Levemir] 32 unit SUBCUT BEDTIME 02/21/16 [History] Lisinopril 5 mg PO DAILY 02/21/16 [History] Amiodarone [Cordarone] 400 mg PO DAILY 05/26/19 [History] Ciprofloxacin [Ciprofloxacin HCl] 500 mg PO BID 05/26/19 [History] Clotrimazole [Clotrimazole 1%] 1 applic TOP DAILY PRN 05/26/19 [History] Insulin Aspart [NovoLOG] See Protocol SQ TIDMEALS 05/26/19 [History] Levothyroxine [Synthroid] 50 mcg PO DAILY 05/26/19 [History] Multivit with Iron,Minerals [Spectravite Senior] 1 tab PO DAILY 05/26/19 [ History] Warfarin [Coumadin] 5 - 7.5 mg PO DAILY 05/26/19 [History] metroNIDAZOLE [Flagyl] 500 mg PO TID 05/26/19 [History] Oxygen Therapy Mode: Room Air Patient Handouts: Insulin Storage and Care, Insulin Treatment for Diabetes Mellitus, Carbohydrate Counting for Diabetes Mellitus, Adult, Form - Diabetes Action Plan, Atrial Fibrillation, [id number] - Discharge Summary/Plan Comment DC Time >30 min.: Yes (DC time unkown) - General Info Date of Service: 05/29/19 Admission Dx/Problem (Free Text: Admission Diagnosis/Problem Admission Diagnosis/Problem Weakness Functional Status: Reports: Pain Controlled, Tolerating Diet, Ambulating, Urinating - Review of Systems General: Reports: No Symptoms HEENT: Reports: No Symptoms Pulmonary: Reports: No Symptoms Cardiovascular: Reports: No Symptoms Gastrointestinal: Reports: No Symptoms Genitourinary: Reports: No Symptoms Musculoskeletal: Reports: No Symptoms Skin: Reports: Other (surgical incision to lower abdomen without pain) Neurological: Reports: No Symptoms Psychiatric: Reports: No Symptoms - Patient Data Vitals - Most Recent: Last Vital Signs Temp 98.3 F 05/28/19 19:31 Pulse 82 05/29/19 08:00 Resp 16 05/29/19 08:00 BP 135/81 05/29/19 08:27 Pulse Ox 98 05/29/19 08:00 Weight - Most Recent: 199 lb Med Orders - Current: Current Medications Discontinued Medications Amiodarone HCl (Cordarone) 400 mg PO DAILY [facility] Last Admin: 05/29/19 08:27 Dose: 400 mg Ciprofloxacin (Ciprofloxacin Hcl) 500 mg PO BID [facility] Last Admin: 05/29/19 08:27 Dose: 500 mg Clotrimazole (Clotrimazole 1%) 0 gm TOP DAILY PRN PRN Reason: Rash Insulin Aspart (Novolog) 0 unit SUBCUT TIDMEALS [facility]; Protocol Last Admin: 05/27/19 17:10 Dose: 12 unit Insulin Aspart (Novolog) 3 unit SUBCUT ONETIME ONE Stop: 05/26/19 15:31 Last Admin: 05/26/19 19:13 Dose: 3 unit Insulin Aspart (Novolog) 0 unit SUBCUT QIDACANDBED [facility]; Protocol Last Admin: 05/29/19 08:28 Dose: Not Given Insulin Aspart (Novolog) 18 unit SUBCUT ONETIME ONE Stop: 05/28/19 17:17 Last Admin: 05/28/19 17:40 Dose: 18 units Insulin Detemir (Levemir) 32 unit SUBCUT BEDTIME [facility] Last Admin: 05/28/19 21:12 Dose: 32 units Levothyroxine Sodium (Synthroid) 50 mcg PO DAILY [facility] Last Admin: 05/27/19 08:13 Dose: 50 mcg Levothyroxine Sodium (Synthroid) 50 mcg PO ACBREAKFAST [facility] Last Admin: 05/29/19 06:24 Dose: 50 mcg Lisinopril (Prinivil) 5 mg PO DAILY [facility] Last Admin: 05/29/19 08:27 Dose: 5 mg Metronidazole (Flagyl) 500 mg PO TID [facility] Last Admin: 05/29/19 08:27 Dose: 500 mg Multivitamins/Minerals (Thera M Plus) 1 tab PO DAILY [facility] Last Admin: 05/29/19 08:27 Dose: 1 tab Tuberculin PPD (Aplisol) 5 unit IDERM ONETIME ONE Stop: 05/26/19 16:01 Last Admin: 05/26/19 20:12 Dose: 5 unit Warfarin Sodium (Coumadin) 2.5 mg PO MOTUWETHFRSA@1800 [facility] Last Admin: 05/28/19 17:38 Dose: 2.5 mg Warfarin Sodium (Coumadin) 1 mg PO YO@1800 [facility] - Exam Quality Assessment: Denies: Supplemental Oxygen General: Reports: Alert, Oriented, Cooperative HEENT: Reports: Pupils Equal, Pupils Reactive Neck: Reports: Supple Lungs: Reports: Clear to Auscultation Cardiovascular: Reports: Regular Rate GI/Abdominal Exam: Normal Bowel Sounds (Male) Exam: Other (Not examined on this visit) Rectal (Males) Exam: Other (Not examined ont his visit) Back Exam: Reports: Full Range of Motion Extremities: Normal Inspection, Normal Range of Motion Skin: Reports: Warm, Dry, Other (Healing surgical incision to mid lower abdomen without redness, tenderness to palpation, or drainage. [place] intact. ) Neurological: Reports: No New Focal Deficit Psy/Mental Status: Reports: Normal Affect, Normal Mood *Q Meaningful Use (DIS) - VTE *Q VTE Mechanical Contraindications *Q: At Risk for Falls
== END 2019-05-29 10:00 | disposition home or self-care (01) | DRG 948 ==
LOC: LB.MS 14:00 → UNDOADMIN 14:45 → LB.MS 14:45
PROVIDERS: ADMIT Nurse Practitioner Family; ATTEND Nurse Practitioner Family
DX: R53.1 Weakness (principal); Z98.890 Other specified postprocedural states; I10 Essential (primary) hypertension; I48.0 Paroxysmal atrial fibrillation; Z79.01 Long term (current) use of anticoagulants; Z90.49 Acquired absence of other specified parts of digestive tract; Z90.81 Acquired absence of spleen; E11.9 Type 2 diabetes mellitus without complications; Z79.4 Long term (current) use of insulin; H52.00 Hypermetropia, unspecified eye; H52.209 Unspecified astigmatism, unspecified eye; H52.4 Presbyopia; H25.10 Age-related nuclear cataract, unspecified eye; Z79.899 Other long term (current) drug therapy
CPT/HCPCS: 82962; 85610; 86580; 97110-GO; 97110-GP; 97161-GP; 97165-GO; 97530-GP; A9270-GY; J1815-GY

== ENCOUNTER → 2019-10-05 | Outpatient (CLI) | payer MEDICARE, BC | LOC: LB.COAG 13:00 | PROVIDERS: ATTEND Nurse Practitioner Family | DX: Z51.81 Encounter for therapeutic drug level monitoring (principal); K55.069 Acute infarction of intestine, part and extent unspecified | CPT/HCPCS: 85610 ==

== ENCOUNTER 2020-01-16 20:51 | Emergency (ER) | payer MEDICARE, BC ==
--- NOTE | 2020-01-16 21:22 | EDM.PDOC ---
ED HPI GENERAL MEDICAL PROBLEM - General Chief Complaint: Abdominal Pain Stated Complaint: abd pain Time Seen by Provider: 01/16/20 21:10 Source of Information: Reports: Patient History Limitations: Reports: No Limitations - History of Present Illness INITIAL COMMENTS - FREE TEXT/NARRATIVE: This patient presents to the ED for evaluation of abdominal pain. He states he has the pain which he rates as a 2/10 for the past 3 days. He states he felt better today but "wanted to get this checked out" because he had "major surgery " a year ago and is concerned he may need to have surgery again. He also is concerned because he has an MD appointment in [place] on 01/18 and wasn't sure if he could go. He denies nausea, vomiting, or diarrhea. He states his last BM was this morning and that sometimes his stools are soft. His appetite is normal. He has not had a fever and denies other concerns or complaints. 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 - Related Data Allergies Allergy/AdvReac Type Severity Reaction Status Date / Time No Known Allergies Allergy Verified 05/10/19 10:15 Home Meds: Home Meds Insulin Detemir [Levemir] 32 unit SUBCUT BEDTIME 02/21/16 [History] Lisinopril 5 mg PO DAILY 02/21/16 [History] Amiodarone [Cordarone] 400 mg PO DAILY 05/26/19 [History] Ciprofloxacin [Ciprofloxacin HCl] 500 mg PO BID 05/26/19 [History] Clotrimazole [Clotrimazole 1%] 1 applic TOP DAILY PRN 05/26/19 [History] Insulin Aspart [NovoLOG] See Protocol SQ TIDMEALS 05/26/19 [History] Levothyroxine [Synthroid] 50 mcg PO DAILY 05/26/19 [History] Multivit with Iron,Minerals [Spectravite Senior] 1 tab PO DAILY 05/26/19 [ History] Warfarin [Coumadin] 5 - 7.5 mg PO DAILY 05/26/19 [History] metroNIDAZOLE [Flagyl] 500 mg PO TID 05/26/19 [History] Past Medical History HEENT History: Reports: None Cardiovascular History: Reports: Afib, Hypertension Gastrointestinal History: Reports: Pancreatitis Other Gastrointestinal History: small bowel resection Musculoskeletal History: Reports: Fracture Endocrine/Metabolic History: Reports: Diabetes, Type I Hematologic History: Reports: Other (See Below) Other Hematologic History: Hypercoagulation being investigated 2019 Immunologic History: Reports: Other (See Below) Other Immunologic History: patient has had spleen removal at 1 years old - Infectious Disease History Infectious Disease History: Reports: Chicken Pox, Mumps - Past Surgical History Cardiovascular Surgical History: Reports: None GI Surgical History: Reports: None Other GI Surgeries/Procedures: small bowel resection Musculoskeletal Surgical History: Reports: Other (See Below) Other Musculoskeletal Surgeries/Procedures:: tooth pick surgically removed from knee as child Social & Family History - Family History Family Medical History: Noncontributory - Caffeine Use Caffeine Use: Reports: Coffee Caffeine Use Comment: 1-2 cups coffee daily ED ROS GENERAL - Review of Systems Review Of Systems: See Below Constitutional: Denies: Fever, Decreased Appetite, Weight Loss HEENT: Reports: No Symptoms Respiratory: Reports: No Symptoms Cardiovascular: Denies: Chest Pain GI/Abdominal: Reports: Abdominal Pain. Denies: Constipation, Diarrhea, Decreased Appetite, Nausea, Vomiting : Reports: No Symptoms Musculoskeletal: Reports: No Symptoms Skin: Reports: No Symptoms Neurological: Reports: No Symptoms ED EXAM, GI/ABD - Physical Exam Exam: See Below Exam Limited By: No Limitations General Appearance: Alert, WD/WN, No Apparent Distress Eyes: Bilateral: Normal Appearance Ears: Normal External Exam Nose: Normal Inspection Throat/Mouth: Normal Inspection Head: Atraumatic, Normocephalic Neck: Normal Inspection, Full Range of Motion Respiratory/Chest: No Respiratory Distress, Lungs Clear, Normal Breath Sounds, No Accessory Muscle Use. No: Respiratory Distress Cardiovascular: Regular Rate, Rhythm, No Murmur GI/Abdominal Exam: Normal Bowel Sounds, Soft, Non-Tender, No Organomegaly, No Distention, No Mass Extremities: Normal Inspection, Normal Range of Motion Neurological: Alert, Oriented Skin Exam: Warm, Dry, Intact Course - Re-Assessments/Exams Free Text/Narrative Re-Assessment/Exam: 01/16/20 21:23 This patient presents with abdominal pain as detailed above. A broad differential diagnosis was considered including appendicitis, gall bladder disease, pancreatitis, diverticular disease, bowel obstruction, volvulus, intussusception, gastritis and peptic ulcer disease, gastro intestinal infection , inflammatory bowel disease, peritonitis, kidney stones, UTI, mesenteric lymphadenopathy, IBS. The patient presents with normal vital signs and has no physical findings. No definitive etiology for the patients pain is found at this point and my suspicion of an intraabdominal catastrophe or other worrisome etiology is low. Cardiac etiologies unlikely as supported by presentation and VS. There is no indication for admission at this time for serial exams and further workup. Patient is hemodynamically stable in ED. Plan is home with 12 hour abdominal pain recheck by primary care physician or return to ED at that time. Return for fevers greater than 102, increasing pain, other new symptoms develop. Abdominal pain instructions given to patient. Questions were answered. Departure - Departure Time of Disposition: 21:25 Disposition: Home, Self-Care 01 Condition: Good Clinical Impression: Abdominal pain - Discharge Information Instructions: Abdominal Pain, Adult, [id number] Forms: ED Department Discharge, ED Return to Work/School Form
[2020-01-16 22:15] VITALS: BP 131/84; PULSE 73
== END 2020-01-16 21:21 | disposition home or self-care (01) ==
LOC: LB.ED 20:51
DX: R10.9 Unspecified abdominal pain (principal); I10 Essential (primary) hypertension; I48.91 Unspecified atrial fibrillation; E10.9 Type 1 diabetes mellitus without complications; Z79.899 Other long term (current) drug therapy
CPT/HCPCS: 99283

== ENCOUNTER 2020-11-13 02:11 | Emergency (ER) | payer MEDICARE, BC ==
[2020-11-13 02:40] VITALS: BP 91/44; PULSE 85
[2020-11-13] MEDS ORDERED: methylPREDNISolone Sodium Succinate 125 MG/2 ML SDV IM ONE (02:55)
[2020-11-13] MEDS ORDERED: Ketorolac 30 MG/ML SDV IM ONE (03:03)
--- NOTE | 2020-11-13 03:10 | EDM.PDOC ---
ED HPI GENERAL MEDICAL PROBLEM - General Chief Complaint: General Stated Complaint: LUE PAIN Time Seen by Provider: 11/13/20 02:45 Source of Information: Reports: Patient History Limitations: Reports: No Limitations - History of Present Illness INITIAL COMMENTS - FREE TEXT/NARRATIVE: patient presented to the ER with a c/o LUE. Started today's afternoon. No trauma. no numbness or tingling. Reports pain is located mainly in the lower third of the LUE and left wrist. No pain, no injury. Denies similar episodes in the past. No CP, SOB, no abd pain. Able to move hands, fingers and elbow without problem. He tried Tylenol but didn't help much. h/o afib on Coumadin. Also h/o DM/HTN. Onset: Sudden Duration: Hour(s): (12) Location: Reports: Upper Extremity, Left Quality: Reports: Ache Worsens with: Reports: Movement Associated Symptoms: Reports: No Other Symptoms Treatments RABBLER: Reports: Acetaminophen Left Lower Arm Pain Score (Numeric/FACES): 9 - Related Data Allergies Allergy/AdvReac Type Severity Reaction Status Date / Time No Known Allergies Allergy Verified 11/13/20 02:35 Home Meds: Home Meds Insulin Aspart [NovoLOG] 1 dose SUBCUT TIDAC 11/13/20 [History] Insulin Degludec [Tresiba Flextouch U-100] 30 units SUBCUT QAM 11/13/20 [History] Levothyroxine 25 mcg PO ACBREAKFAST 11/13/20 [History] Sotalol HCl [Sotalol] 1 tab PO BID 11/13/20 [History] Warfarin [Coumadin] 1 - 1.5 tab PO DAILY 11/13/20 [History] atorvaSTATin [Lipitor] 1 tab PO DAILY 11/13/20 [History] lisinopriL [Lisinopril] 5 mg PO DAILY 11/13/20 [History] Past Medical History HEENT History: Reports: Hard of Hearing, Impaired Vision Cardiovascular History: Reports: Afib, Hypertension Gastrointestinal History: Reports: Pancreatitis Other Gastrointestinal History: small bowel resection Musculoskeletal History: Reports: Fracture Endocrine/Metabolic History: Reports: Diabetes, Type II Hematologic History: Reports: Anticoagulation Therapy, Other (See Below) Other Hematologic History: Hypercoagulation being investigated 2019 Immunologic History: Reports: Other (See Below) Other Immunologic History: patient has had spleen removal at 1 years old - Infectious Disease History Infectious Disease History: Reports: Chicken Pox, Mumps - Past Surgical History Cardiovascular Surgical History: Reports: None GI Surgical History: Reports: None Other GI Surgeries/Procedures: small bowel resection Musculoskeletal Surgical History: Reports: Other (See Below) Other Musculoskeletal Surgeries/Procedures:: tooth pick surgically removed from knee as child Social & Family History - Family History Family Medical History: No Pertinent Family History - Tobacco Use Tobacco Use Status *Q: Former Tobacco User Years of Tobacco use: 15 Packs/Tins Daily: 1 Used Tobacco, but Quit: Yes Month/Year Tobacco Last Used: 1994 - Caffeine Use Caffeine Use: Reports: Soda Caffeine Use Comment: 1-2 cups coffee daily - Recreational Drug Use Recreational Drug Use: No ED ROS GENERAL - Review of Systems Review Of Systems: Comprehensive ROS is negative, except as noted in HPI. Constitutional: Reports: No Symptoms HEENT: Reports: No Symptoms Respiratory: Reports: No Symptoms Cardiovascular: Reports: No Symptoms GI/Abdominal: Reports: No Symptoms Skin: Reports: No Symptoms Neurological: Reports: No Symptoms Psychiatric: Reports: No Symptoms ED EXAM, GENERAL - Physical Exam Exam: See Below Exam Limited By: No Limitations General Appearance: Alert, WD/WN, No Apparent Distress Nose: Normal Inspection Respiratory/Chest: No Respiratory Distress, Normal Breath Sounds, No Accessory Muscle Use Cardiovascular: Normal Peripheral Pulses, Regular Rate, Rhythm (currently) Peripheral Pulses: 2+: Brachial (L), Brachial (R), Radial (L), Radial (R) GI/Abdominal: Soft, Non-Tender Extremities: Normal Inspection, Normal Range of Motion, Other (mild discomfort on passive flexion of the left elbow. no noted redness, warmth or skin change, Very minimal swelling over the affected area) Neurological: Alert, Oriented, Normal Cognition, No Motor/Sensory Deficits Course - Vital Signs Last Recorded V/S: Last Vital Signs Temp 36.4 C 11/13/20 02:17 Pulse 85 11/13/20 02:17 Resp 16 11/13/20 02:17 BP 91/44 L 11/13/20 02:17 Pulse Ox 94 L 11/13/20 02:17 - Orders/Labs/Meds Meds: Medications Discontinued Medications Generic Name Dose Route Start Last Admin Trade Name Freq PRN Reason Stop Dose Admin Ketorolac Tromethamine 30 mg 11/13/20 03:03 11/13/20 03:11 Toradol IM 11/13/20 03:04 30 mg ONETIME ONE Administration Methylprednisolone Sodium Succinate 125 mg 11/13/20 02:55 11/13/20 02:55 Solu-Medrol IM 11/13/20 02:56 125 mg ONETIME ONE Administration - Re-Assessments/Exams Free Text/Narrative Re-Assessment/Exam: 11/13/20 03:13 IM solumedrol 125mg was given, as well as, IM toradol 30mg Concerns for arthritis vs gout. 11/13/20 03:44 patient reports feeling better and pain is going down Departure - Departure Time of Disposition: 03:44 Disposition: Home, Self-Care 01 Condition: Good Clinical Impression: Arthritis - Discharge Information *PRESCRIPTION DRUG MONITORING PROGRAM REVIEWED*: Not Applicable *COPY OF PRESCRIPTION DRUG MONITORING REPORT IN PATIENT MIKAEL: Yes Instructions: Acetaminophen; Hydrocodone tablets or capsules, Prednisone tablets Forms: ED Department Discharge Additional Instructions: Begin taking provided Hydrocodone as instructed: 1 tablet by mouth every 6-8 hours as needed for pain. Also begin taking provided Prednisone at 1000 today as directed: 3 tablets by mouth once daily for 2 days 2 tablets by mouth once daily for 2 days then 1 tablet by mouth daily until all are gone. May apply cold compress to affected area on for 10-15 minutes every 2 hours. Diet and activity as tolerated. Should symptoms worsen or persist, return for further evaluation. Otherwise, may follow up in clinic with regular provider if needed. Sepsis Event Note (ED) - Evaluation Sepsis Screening Result: No Definite Risk - Focused Exam Vital Signs: Vital Signs Temp Pulse Resp BP Pulse Ox 11/13/20 02:17 36.4 C 85 16 91/44 L 94 L - Problem List & Annotations (1) Arthritis SNOMED Code(s): 6874970 Code(s): M19.90 - UNSPECIFIED OSTEOARTHRITIS, UNSPECIFIED SITE Status: Acute Priority: Low - Assessment/Plan Assessment:: Begin taking provided Hydrocodone as instructed: 1 tablet by mouth every 6-8 hours as needed for pain. Also begin taking provided Prednisone at 1000 today as directed: 3 tablets by mouth once daily for 2 days 2 tablets by mouth once daily for 2 days then 1 tablet by mouth daily until all are gone. May apply cold compress to affected area on for 10-15 minutes every 2 hours. Diet and activity as tolerated. Should symptoms worsen or persist, return for further evaluation. Otherwise, may follow up in clinic with regular provider if needed. Watch for blood sugar - might increase due to cortisone - adjust insulin dos accordingly
[2020-11-13] MEDS ORDERED: predniSONE 10 MG Tab ONE (03:30)
[2020-11-13] MEDS ORDERED: Acetaminophen/HYDROcodone 325-5 MG Tab ONE (03:30)
== END 2020-11-13 03:43 | disposition home or self-care (01) ==
LOC: LB.ED 02:11
DX: M19.022 Primary osteoarthritis, left elbow (principal); M19.032 Primary osteoarthritis, left wrist; I48.91 Unspecified atrial fibrillation; E11.9 Type 2 diabetes mellitus without complications; I10 Essential (primary) hypertension; Z79.4 Long term (current) use of insulin; Z79.01 Long term (current) use of anticoagulants; Z79.899 Other long term (current) drug therapy; Z87.891 Personal history of nicotine dependence
CPT/HCPCS: 96372; 99283; A9270-GY; J1885; J2930; J7512

== ENCOUNTER 2022-03-21 18:45 | Emergency (ER) | payer MEDICARE, BC ==
[2022-03-21 18:57] VITALS: BP 135/87; PULSE 68
[2022-03-21] MEDS ORDERED: Ketorolac 60 MG/2 ML SDV IM ONE (19:07)
== END 2022-03-21 19:30 | disposition home or self-care (01) ==
LOC: LB.ED 18:45
DX: M77.9 Enthesopathy, unspecified (principal); I48.91 Unspecified atrial fibrillation; I10 Essential (primary) hypertension; E11.9 Type 2 diabetes mellitus without complications; Z79.4 Long term (current) use of insulin; Z79.01 Long term (current) use of anticoagulants; Z79.899 Other long term (current) drug therapy
CPT/HCPCS: 96372; 99283; J1885

== ENCOUNTER 2023-06-30 10:05 | Observation (INO) | payer MEDICARE, BC ==
[2023-06-30 10:51] LABS: HEMATOCRIT 38.9 % (40.0-54.0); HEMOGLOBIN 13.9 g/dL (13.0-18.0); MEAN CORPUSCULAR HEMOGLOBIN 31.4 pg (27.0-32.0); MEAN CORPUSCULAR HGB CONC 35.7 g/dL (31.0-35.0); MEAN PLATELET VOLUME 13.4 fL (6.0-10.0); RED BLOOD CELL COUNT 4.43 M/uL (4.50-6.50); RED CELL DISTRIBUTION WIDTH 17.8 % (11.0-16.0); WHITE BLOOD CELL COUNT,WBC 4.2 K/uL (4.0-11.0)
[2023-06-30] MEDS: Sodium Chloride 0.9% 1,000 ML IV SCH ×2 (11:00→13:30)
[2023-06-30 11:03] LABS: ANION GAP 11.7 mmol/L (5.0-15.0); BUN/CREATININE RATIO 22.1 (6-25); CALCIUM 8.7 mg/dL (8.5-10.1); CREATININE 2.31 mg/dL (0.70-1.30); EST CRCL DRUG DOSING (CG) 32.6 mL/min; POTASSIUM,K 3.7 mmol/L (3.5-5.1)
[2023-06-30] MEDS ORDERED: Sodium Chloride 0.9% 1,000 ML IV SCH ×2 (13:30→18:00)
[2023-06-30 13:40] LABS: APPEARANCE,URINE CLOUDY (CLEAR); BILIRUBIN,URINE SMALL (NEGATIVE); COLOR,URINE YELLOW; GLUCOSE,URINE 500 mg/dL (NEGATIVE); KETONES,URINE TRACE mg/dL (NEGATIVE); LEUKOCYTE ESTERASE,URINE NEGATIVE (NEGATIVE); NITRITE,URINE NEGATIVE (NEGATIVE); OCCULT BLOOD,URINE NEGATIVE (NEGATIVE); PROTEIN,URINE 30 mg/dL (NEGATIVE); UROBILINOGEN,URINE 0.2 E.U./dL (0.2-1.0)
[2023-06-30 13:49] LABS: RBC,URINE NOT SEEN /HPF
[2023-06-30 13:50] LABS: AMORPHOUS SEDIMENT,URINE MODERATE /HPF; COARSE GRANULAR CASTS,URINE FEW /HPF; EPITHELIAL CELLS,URINE MODERATE /HPF; FINE GRANULAR CASTS,URINE FEW /HPF; HYALINE CASTS,URINE MANY /HPF; SQUAMOUS EPITHELIAL CELLS,UR FEW /HPF; WBC,URINE 0-5 /HPF
[2023-06-30 16:34] LABS: KETONES,BLOOD NEGATIVE (NEGATIVE)
[2023-06-30 16:38] LABS: ANION GAP 15.7 mmol/L (5.0-15.0); CALCIUM 8.2 mg/dL (8.5-10.1); CARBON DIOXIDE,CO2 19.4 mmol/L (21.0-32.0); CHLORIDE,CL 105 mmol/L (98-107); CREATININE 1.86 mg/dL (0.70-1.30); EST CRCL DRUG DOSING (CG) 40.48 mL/min; ESTIMATED GFR 39 mL/min (>60); GLUCOSE RANDOM 51 mg/dL (74-100); INR 2.5 (1.0-3.5); POTASSIUM,K 4.1 mmol/L (3.5-5.1); PROTHROMBIN TIME 25.1 sec (9.0-11.5); SODIUM,NA 136 mmol/L (136-145)
[2023-06-30 16:39] LABS: BLOOD UREA NITROGEN,BUN 52 mg/dL (8-26)
[2023-06-30] MEDS ORDERED: 50% Dextrose in Water 50 ML Syringe IVPUSH PRN (18:25)
[2023-06-30] MEDS ORDERED: Glucagon,Human Recombinant 1 MG Vial IM PRN (18:25)
[2023-06-30] MEDS: Sotalol 80 MG Tab PO SCH (21:30)
[2023-06-30] MEDS: Insulin Aspart 100 Units/ML 3 ML Pen SUBCUT SCH (21:45)
[2023-07-01] MEDS ORDERED: Levothyroxine 25 MCG Tab PO SCH (07:00)
[2023-07-01] MEDS: Sotalol 80 MG Tab PO SCH (08:00)
[2023-07-01] MEDS ORDERED: Lisinopril 5 MG Tab PO SCH (08:00)
[2023-07-01] MEDS ORDERED: atorvaSTATin 20 MG Tab PO SCH (08:00)
[2023-07-01] MEDS: Insulin Aspart 100 Units/ML 3 ML Pen SUBCUT SCH ×2 (08:39→12:45)
[2023-07-01 09:07] LABS: A/G RATIO 0.5 (0.8-2.0); ALBUMIN 2.5 g/dL (3.4-5.0); ANION GAP 14.3 mmol/L (5.0-15.0); BILIRUBIN TOTAL 0.8 mg/dL (0.0-1.0); BUN/CREATININE RATIO 32.8 (6-25); CALCIUM 8.2 mg/dL (8.5-10.1); CREATININE 1.16 mg/dL (0.70-1.30); EST CRCL DRUG DOSING (CG) 64.91 mL/min; POTASSIUM,K 4.3 mmol/L (3.5-5.1); PROTEIN TOTAL,TP 7.2 g/dL (6.4-8.2)
[2023-07-01 13:05] VITALS: BP 119/64; PULSE 90
== END 2023-07-01 14:45 | disposition home or self-care (01) ==
LOC: LB.ED 10:05 → LB.MS 17:50 → UNDOADMOB 18:10
PROVIDERS: ADMIT Surgery; ATTEND Surgery
DX: R53.83 Other fatigue (principal); K56.609 Unspecified intestinal obstruction, unspecified as to partial versus complete obstruction; E10.21 Type 1 diabetes mellitus with diabetic nephropathy; N17.9 Acute kidney failure, unspecified; E86.0 Dehydration; I10 Essential (primary) hypertension; I48.91 Unspecified atrial fibrillation; Z79.01 Long term (current) use of anticoagulants; Z79.4 Long term (current) use of insulin; Z79.890 Hormone replacement therapy; Z79.899 Other long term (current) drug therapy
CPT/HCPCS: 36415; 80048; 80053; 81001; 82009; 82947; 83036; 83605; 85027; 85610; 96360; 96361; 99222; 99239; 99284-25; A9270-GY; G0378; J7030

== ENCOUNTER 2025-06-17 15:08 | Emergency (ER) | payer OTHER, MEDICARE, BC ==
[2025-06-17 16:02] LABS: BASOPHILS ABSOLUTE AUTO 0.01 K/uL (0.02-0.10); BASOPHILS PERCENT AUTO 0.1 % (0.0-0.5); EOSINOPHILS ABSOLUTE AUTO 0.01 K/uL (0.04-0.40); EOSINOPHILS PERCENT AUTO 0.1 % (1.0-5.0); LYMPHOCYTES ABSOLUTE AUTO 1.28 K/uL (1.50-4.00); LYMPHOCYTES PERCENT AUTO 11.5 % (20.0-40.0); MEAN PLATELET VOLUME 12.6 fL (6.0-10.0); MONOCYTES ABSOLUTE AUTO 2.31 K/uL (0.20-0.80); MONOCYTES PERCENT AUTO 20.8 % (3.0-10.0); NEUTROPHILS ABSOLUTE AUTO 7.50 K/uL (2.00-7.50); NEUTROPHILS PERCENT AUTO 67.5 % (45.0-70.0); PLATELET COUNT,PLT 206 K/uL (150-400); RED BLOOD CELL COUNT 4.03 M/uL (4.50-6.50); RED CELL DISTRIBUTION WIDTH 18.1 % (11.0-16.0); WHITE BLOOD CELL COUNT,WBC 11.1 K/uL (4.0-11.0)
[2025-06-17 16:15] LABS: A/G RATIO 0.5 (0.8-2.0); ALANINE AMINOTRANSFERASE,ALT 13.0 U/L (12-78); ASPARTATE AMNIOTRANSFERASE,AST 20.0 U/L (15-37); BILIRUBIN TOTAL 1.5 mg/dL (0.0-1.0); BLOOD UREA NITROGEN,BUN 20.0 mg/dL (8-26); CARBON DIOXIDE,CO2 27.1 mmol/L (21.0-32.0); CHLORIDE,CL 100.0 mmol/L (98-107); CREATININE 0.85 mg/dL (0.70-1.30); EST CRCL DRUG DOSING (CG) 86.13 mL/min; ESTIMATED GFR 93.0 mL/min (>60); GLUCOSE RANDOM 277.0 mg/dL (74-100); POTASSIUM,K 4.0 mmol/L (3.5-5.1); PROTEIN TOTAL,TP 7.5 g/dL (6.4-8.2); SODIUM,NA 130.0 mmol/L (136-145)
[2025-06-17 16:41] LABS: INR 5.0 (1.0-3.5)
[2025-06-17 18:35] VITALS: BP 125/72; PULSE 78
== END 2025-06-17 16:55 | disposition home or self-care (01) ==
LOC: LB.ED 15:08
DX: S22.31XA Fracture of one rib, right side, initial encounter for closed fracture (principal); G47.00 Insomnia, unspecified; I48.91 Unspecified atrial fibrillation; E11.9 Type 2 diabetes mellitus without complications; Z79.899 Other long term (current) drug therapy; Z79.4 Long term (current) use of insulin; Z79.890 Hormone replacement therapy; Z79.01 Long term (current) use of anticoagulants; V49.59XA Passenger injured in collision with other motor vehicles in traffic accident, initial encounter; Y93.89 Activity, other specified
CPT/HCPCS: 36415; 71046; 80053; 82947; 85025; 85610; 93005; 99283; 99284